=== PATIENT | male | born 2000 | race Caucasian/White ===

== ENCOUNTER 2023-03-02 09:39 | Emergency (ER) | payer OTHER | END 2023-03-02 11:10 | disposition home or self-care (01) | LOC: VM.ED 09:39 | DX: S00.03XA Contusion of scalp, initial encounter (principal); S00.83XA Contusion of other part of head, initial encounter; V59.9XXA Occupant (driver) (passenger) of pick-up truck or van injured in unspecified traffic accident, initial encounter; Y92.410 Unspecified street and highway as the place of occurrence of the external cause | CPT/HCPCS: 70450; 71045; 72125; 72170; 99284 ==